=== PATIENT | male | born 2005 | race Caucasian/White ===

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

== ENCOUNTER 2024-03-14 23:28 | Emergency (ER) | payer BC ==
[2024-03-14 23:34] VITALS: RESP 16
[2024-03-15] MEDS: ORPHENADRINE 30 MG/ML 2 ML VIAL IM STA (00:29)
[2024-03-15] MEDS: KETOROLAC 15 MG/ML 1 ML VIAL IM STA (00:29)
[2024-03-15] MEDS: LIDOCAINE 4% PATCH TOPICAL ONE (00:30)
--- NOTE | 2024-03-15 00:38 | XR ---
EXAMINATION TYPE: XR chest 1V portable DATE OF EXAM: 03/15/2024 COMPARISON: Chest x-ray January 01, 2022 HISTORY: Left-sided pain TECHNIQUE: Single frontal view of the chest is obtained. FINDINGS: There is no focal air space opacity, pleural effusion, or pneumothorax seen. The cardiac silhouette size remains within normal limits. The osseous structures are intact. IMPRESSION: No acute process. [facility], , 03/15/2024 12:36 AM
--- NOTE | 2024-03-15 01:08 | ED ---
Back Pain HPI - General Chief Complaint: Back Pain/Injury Stated Complaint: Back pain Time Seen by Provider: 03/14/24 23:42 Source: patient Limitations: no limitations - History of Present Illness Initial Comments: 18-year-old male presenting chief complaint of back pain. Patient is having pain. The left shoulder blade. He believes that the pain of the muscle fall at the gym the other day. States that it hurts with range of motion and laying down. Outside of going to the gym no obvious trauma or injury. No numbness tingling or weakness. Patient has been taking Motrin and Tylenol as needed without relief. No chest pain. Deep breaths worsen the pain. No fevers or chills. No cough, congestion, sore throat. No lower extremity swelling. - Related Data Previous Rx's Medication Instructions Recorded Acetaminophen Tab [Tylenol] 650 mg PO Q6H #30 tab 05/07/20 Docusate [Colace] 100 mg PO BID #20 capsule 05/07/20 Ibuprofen [Motrin] 600 mg PO Q6HR PRN #40 tab 05/07/20 oxyCODONE HCL [OxyIR] 5 mg PO Q4H PRN 3 Days #18 tab 05/07/20 Cyclobenzaprine [Flexeril] 10 mg PO TID PRN #15 tab 03/15/24 Allergies Allergy/AdvReac Type Severity Reaction Status Date / Time No Known Allergies Allergy Verified 03/14/24 23:29 Review of Systems ROS Statement: Those systems with pertinent positive or pertinent negative responses have been documented in the HPI. ROS Other: All systems not noted in ROS Statement are negative. Past Medical History Past Medical History: No Reported History Additional Past Medical History / Comment(s): recently finished steroids History of Any Multi-Drug Resistant Organisms: None Reported Past Surgical History: Appendectomy, Hernia Repair, Tonsillectomy Additional Past Surgical History / Comment(s): tonsilectomy APR 01, 2020 Past Anesthesia/Blood Transfusion Reactions: No Reported Reaction Past Psychological History: No Psychological Hx Reported Smoking Status: Never smoker Past Alcohol Use History: None Reported Past Drug Use History: None Reported - Past Family History Mother Family Medical History: No Reported History General Exam Limitations: no limitations General appearance: alert, in no apparent distress Head exam: Present: atraumatic, normocephalic, normal inspection Eye exam: Present: normal appearance Neck exam: Present: normal inspection. Absent: meningismus Respiratory exam: Present: normal lung sounds bilaterally. Absent: respiratory distress, wheezes, rales, rhonchi, stridor Cardiovascular Exam: Present: regular rate, normal rhythm, normal heart sounds. Absent: systolic murmur, diastolic murmur, rubs, gallop, clicks Extremities exam: Present: normal inspection, full ROM. Absent: pedal edema Back exam: Present: normal inspection, paraspinal tenderness. Absent: vertebral tenderness Neurological exam: Present: alert, oriented X3 Psychiatric exam: Present: normal affect, normal mood Skin exam: Present: warm, dry Course Vital Signs 03/14/24 03/15/24 23:29 01:28 Temperature 97.5 F L 97.6 F Pulse Rate 83 71 Respiratory 16 16 Rate Blood Pressure 123/79 106/72 O2 Sat by Pulse 99 100 Oximetry Medical Decision Making - Medical Decision Making Was pt. sent in by a medical professional or institution (, PA, EMERGENCY MEDICAL TECH, urgent care, hospital, or [place] [facility] facility...) When possible be specific @ -No Did you speak to anyone other than the patient for history (EMS, parent, family, police, friend...)? What history was obtained from this source @ -No Did you review nursing and triage notes (agree or disagree)? Why? @ -I reviewed and agree with nursing and triage notes Were old charts reviewed (outside hosp., previous admission, EMS record, old EKG, old radiological studies, urgent care reports/EKG's, [place] health care facility records)? Report findings @ -No old charts were reviewed Differential Diagnosis (chest pain, altered mental status, abdominal pain women, abdominal pain men, vaginal bleeding, weakness, fever, dyspnea, syncope, headache, dizziness, GI bleed, back pain, seizure, CVA, palpatations, mental health, musculoskeletal)? @ - MDM Differential Back Pain: Strain, zoster, cauda equina syndrome, epidural abscess, vertebral osteomyelitis, discitis, fracture, subluxation, disc herniation, DJD, spinal stenosis, dissection, AAA, pancreatitis, peptic ulcer disease, pyelonephritis, kidney stone this is not meant to be an all-inclusive list. EKG interpreted by me (3pts min.). @ -As above X-rays interpreted by me (1pt min.). @ -Chest x-ray shows no acute process CT interpreted by me (1pt min.). @ -None done U/S interpreted by me (1pt. min.). @ -None done What testing was considered but not performed or refused? (CT, X-rays, U/S, labs)? Why? @ -None What meds were considered but not given or refused? Why? @ -None Did you discuss the management of the patient with other professionals (professionals i.e. DrMartha, PA, EMERGENCY MEDICAL TECH, lab, RT, psych nurse, social security benefits interviewer, icing machine operator, t eacher, airfield services officer, manager case management)? Give summary @ -No Was smoking cessation discussed for >3mins.? @ -No Was critical care preformed (if so, how long)? @ -No Were there social determinants of health that impacted care today? How? (Homelessness, low income, unemployed, alcoholism, drug addiction, transportation, low edu. Level, literacy, decrease access to med. care, care home, rehab)? @ -No Was there de-escalation of care discussed even if they declined (Discuss DNR or withdrawal of care, Hospice)? DNR status @ -No What co-morbidities impacted this encounter? (DM, HTN, Smoking, COPD, CAD, Cancer, CVA, ARF, Chemo, Hep., AIDS, mental health diagnosis, sleep apnea, morbid obesity)? @ -None Was patient admitted / discharged? Hospital course, mention meds given and route, prescriptions, significant lab abnormalities, going to OR and other pertinent info. @ -18-year-old male presenting with chief complaint of back pain near the left shoulder blade. Worse with range of motion and worse with palpation. No midline tenderness. No weakness. lungs are clear to auscultation. Vital signs are stable. Patient is given Toradol, Norflex, lidocaine patch. On reassessment he reports improved his symptoms. Chest x-ray was performed which shows no acute process. Patient feels ready for discharge home. Follow-up with PCP. Report back to ER with any new or worsening symptoms. Discussed return parameters and answered all questions. Patient conveyed verbal understanding and agreed to the plan. I discussed this case in detail with my attending Dr. Martinez Undiagnosed new problem with uncertain prognosis? @ -No Drug Therapy requiring intensive monitoring for toxicity (Heparin, Nitro, Insulin, Cardizem)? @ -No Were any procedures done? @ -No Diagnosis/symptom? @ -Thoracic back pain Acute, or Chronic, or Acute on Chronic? @ -Acute Uncomplicated (without systemic symptoms) or Complicated (systemic symptoms)? @ -Uncomplicated Side effects of treatment? @ -No Exacerbation, Progression, or Severe Exacerbation? @ -No Poses a threat to life or bodily function? How? (Chest pain, [place], [place], pneumonia, PE, COPD, DKA, ARF, appy, cholecystitis, CVA, Diverticulitis, Homicidal, Street icidal, threat to staff... and all critical care pts) @ -Unlikely Disposition Clinical Impression: Thoracic back pain Disposition: HOME SELF-CARE Condition: Good Instructions (If sedation given, give patient instructions): Thoracic Back Strain (ED) Additional Instructions: Follow-up with PCP. Report back to ER with any new or worsening symptoms. Take Motrin and Tylenol as needed for pain control. Use [id number] lidocaine patches as needed. Take cyclobenzaprine per instructions, take before driving or operating heavy machinery as it may cause drowsiness Prescriptions: Cyclobenzaprine [Flexeril] 10 mg PO TID PRN #15 tab PRN Reason: Spasms Is patient prescribed a controlled substance at d/c from ED?: No Referrals: None,Stated [Primary Care Provider] - 1-2 days Hector Hannah MD [STAFF PHYSICIAN] - 1-2 days Time of Disposition: 01:07
[2024-03-15 01:29] VITALS: BP 106/72; PULSE 71; TEMP 97.6
== END 2024-03-15 01:28 | disposition home or self-care (01) ==
LOC: EC 23:28
CPT/HCPCS: 71045; 96372; 99283

== ENCOUNTER → 2024-11-30 | Outpatient (CLI) | payer BC | END | disposition home or self-care (01) | LOC: LABWHC1 14:08 | PROVIDERS: ATTEND Family Medicine | DX: Z00.00 Encounter for general adult medical examination without abnormal findings (principal) | CPT/HCPCS: 36415; 84681 ==